=== PATIENT | female | born 1990 | race Caucasian/White ===

== ENCOUNTER 2019-10-11 09:10 | Emergency (ER) | payer OTHER ==
[~2019-10-11] VITALS: Ht 165.1 cm; Wt 80.4 kg
[2019-10-11 09:15] VITALS: TEMP 99.1
[2019-10-11] MEDS ORDERED: PRENATAL TABLET PO (09:20)
[2019-10-11 09:58] LABS: BASO % 0.2 % (0.0-2.0); EOS % 0.1 % (0-4.0); GRAN # 8.5 (1.4-6.5); GRAN % 82.3 % (42.2-75.2); HEMATOCRIT 38.6 % (37.0-47.0); HEMOGLOBIN 13.1 g/dl (12.5-16.0); LYMPH # 1.4 (1.2-3.4); LYMPH % 13.3 % (20.0-51.0); MEAN CELL VOLUME 91 fl (80.0-100.0); MEAN CORPUSCULAR HEMOGLOBIN 31 pg (27.0-31.0); MEAN CORPUSCULAR HGB CONC 34 g/dl (33.0-37.0); MEAN PLATELET VOLUME 10.4 fl (7.4-10.4); MONO # 0.4 (0.1-0.6); MONO % 3.8 % (1.7-9.3); PLATELET COUNT 279 K/mm3 (130-400); RED BLOOD COUNT 4.26 M/mm3 (4.10-5.30); REDCELL DISTRIBUTION WIDTH-CV 13.3 % (11.5-14.5)
[2019-10-11 10:00] LABS: ALBUMIN 4.4 gm/dL (3.5-5.0); BILIRUBIN,TOTAL 0.1 mg/dL (0.0-1.0); CALCIUM 9.1 mg/dL (8.4-10.2); CREATININE, serum 0.59 (0.52-1.25); POTASSIUM 3.7 mmol/L (3.4-5.0); TOTAL PROTEIN 7.9 gm/dL (6.4-8.2)
[2019-10-11 10:19] LABS: COLLECTION METHOD CLEAN CATCH
[2019-10-11 10:24] LABS: PH 7 (5-8); SQUAMOUS EPITHELIAL None Seen /hpf; URINE APPEARANCE Clear; URINE BACTERIA None Seen /hpf; URINE BILIRUBIN Negative (NEGATIVE); URINE BLOOD Negative (NEGATIVE); URINE COLOR Colorless; URINE GLUCOSE Negative (NEGATIVE); URINE KETONE Negative (NEGATIVE); URINE LEUKOCYTE ESTERASE Negative (NEGATIVE); URINE NITRATE Negative (NEGATIVE); URINE PROTEIN(semi-quant) Negative (NEGATIVE); URINE RBC None Seen /hpf; URINE UROBILINOGEN Negative (NEGATIVE)
[2019-10-11 14:55] VITALS: BP 145/93; PULSE 87
== END 2019-10-11 14:55 | disposition home or self-care (01) ==
LOC: COL.ER 09:10
PROVIDERS: Emergency Medicine; Physician Assistant
DX: O46.91 Antepartum hemorrhage, unspecified, first trimester (principal); Z3A.01 Less than 8 weeks gestation of pregnancy

== ENCOUNTER 2020-05-27 07:41 | Inpatient (IN) | payer OTHER ==
[2020-05-27] VITALS (41 sets, daily range): BP systolic 107–141; BP diastolic 60–91; PULSE 72–123; TEMP 97.3–99
[~2020-05-27] VITALS: Ht 165.1 cm; Wt 92.7 kg
[~2020-05-27 07:41] MED LIST: PRENATAL TABLET PO
--- NOTE | 2020-05-27 07:55 | NUR ---
Patient ambulates to LR4 with spouse, changed into gown, FHR/TOCO monitors applied and explained. Patient states "had a big gush around 8pm last night and then another and then continued to wet pads and it has been clear, then around 9pm I started to have irregular contractions and those became farther apart". Denies any vaginal bleeding or decreased movement. Plan of care discussed and assessment completed. 0802: SVE-3/70/-2 and amniotest slowly changes a dark green/blue and bloody show noted. 0813: Dr Adames called and in surgery so talked with Nurse and Nurse relayed message. Dr Schumacher orders to recheck in 20-30minutes and reassess.
[2020-05-27 09:55] LABS: BASO % 0.1 % (0.0-2.0); EOS % 0.2 % (0-4.0); GRAN # 10.2 (1.4-6.5); GRAN % 79.5 % (42.2-75.2); HEMATOCRIT 38.4 % (37.0-47.0); HEMOGLOBIN 12.9 g/dl (12.5-16.0); LYMPH # 1.9 (1.2-3.4); LYMPH % 14.8 % (20.0-51.0); MEAN CELL VOLUME 90 fl (80.0-100.0); MEAN CORPUSCULAR HEMOGLOBIN 30 pg (27.0-31.0); MEAN CORPUSCULAR HGB CONC 34 g/dl (33.0-37.0); MEAN PLATELET VOLUME 12.1 fl (7.4-10.4); MONO # 0.6 (0.1-0.6); MONO % 4.8 % (1.7-9.3); PLATELET COUNT 210 K/mm3 (130-400); RED BLOOD COUNT 4.27 M/mm3 (4.10-5.30); REDCELL DISTRIBUTION WIDTH-CV 13.7 % (11.5-14.5)
--- NOTE | 2020-05-27 11:08 | NUR ---
Pt off monitors for bathroom 1112-Pt back to bed to improve FHR tracing. 1117-FHR reactive. Pitocin increased to 8mU. 1122, 1123 respectively, late decelerations noted. Pt repositioned LL with LR bolus infusing.
--- NOTE | 2020-05-27 11:50 | NUR ---
Dr. Adames on unit. Reviews FHR strip. Discusses pt positioning,epidural, and FHR decelerations. Orders to continue expectant management of labor.
--- NOTE | 2020-05-27 12:30 | NUR ---
Pt sitting at EOB for epidural placement. Difficulty tracing FHR due to maternal position. RN at bedside adjusting monitors. FHR audible.
[2020-05-28 01:15] VITALS: BP 118/72; PULSE 100; TEMP 98.2
--- NOTE | 2020-05-28 07:30 | NUR ---
Encouraged patient to feed baby. Says she is going to try . Denies wanting any pain medication.
[2020-05-28] MEDS ORDERED: IBU800 M1 PO (08:32)
[2020-05-28 09:00] VITALS: BP 122/72; PULSE 105; TEMP 97.8
--- NOTE | 2020-05-28 13:00 | NUR ---
Rests in bed, alert. reporting process consultant works with patient on .
[2020-05-28 14:30] VITALS: BP 127/80; PULSE 91; TEMP 97.2
[2020-05-28 17:00] VITALS: BP 107/67; PULSE 89; TEMP 97.5
[2020-05-28 20:15] VITALS: BP 117/78; PULSE 89; TEMP 97.5
[2020-05-29 08:31] VITALS: BP 122/81; PULSE 91; TEMP 98.2
== END 2020-05-29 12:55 | disposition home or self-care (01) | DRG 806 ==
LOC: LDR 07:41 → OB 08:55 → LDR 08:55 → OB 20:45
PROVIDERS: ADMIT Student in an Organized Health Care Education/Training Program
PROC: 10E0XZZ Delivery of Products of Conception, External Approach (ICD-10-PCS; principal; 2020-05-27)
PROC: 0W8NXZZ Division of Female Perineum, External Approach (ICD-10-PCS; 2020-05-27)
DX: O42.92 Full-term premature rupture of membranes, unspecified as to length of time between rupture and onset of labor (principal); O10.02 Pre-existing essential hypertension complicating childbirth; Z37.0 Single live birth; O72.1 Other immediate postpartum hemorrhage; O99.214 Obesity complicating childbirth; E66.9 Obesity, unspecified; O69.81X0 Labor and delivery complicated by cord around neck, without compression, not applicable or unspecified; O99.344 Other mental disorders complicating childbirth; F41.9 Anxiety disorder, unspecified; Z3A.37 37 weeks gestation of pregnancy
CPT/HCPCS: J2210; J2540; J2590; J2795; J7120